=== PATIENT | female | born 1960 | race Two or more races ===

== ENCOUNTER 2021-03-20 07:22 | Outpatient (CLI) | payer OTHER | END 2021-03-20 07:27 | disposition home or self-care (01) | LOC: RX STUDY 07:22 | PROVIDERS: ATTEND Internal Medicine Gastroenterology | DX: K57.10 Diverticulosis of small intestine without perforation or abscess without bleeding (principal); K21.9 Gastro-esophageal reflux disease without esophagitis; K31.89 Other diseases of stomach and duodenum; K57.30 Diverticulosis of large intestine without perforation or abscess without bleeding; K76.89 Other specified diseases of liver; K62.1 Rectal polyp ==

== ENCOUNTER 2024-09-27 07:04 | Outpatient (CLI) | payer OTHER | END 2024-09-27 07:06 | disposition home or self-care (01) | LOC: NUCLEAR 07:04 | PROVIDERS: ATTEND Internal Medicine Gastroenterology | DX: K57.30 Diverticulosis of large intestine without perforation or abscess without bleeding (principal); K21.9 Gastro-esophageal reflux disease without esophagitis ==